=== PATIENT | female | born 1980 | race Caucasian/White ===

== ENCOUNTER 2017-07-24 13:39 | Emergency (ER) | payer BC ==
[2017-07-24] MEDS ORDERED: ALBUTEROL SULFATE/IPRATROPIUM 3 ML NEBU IH ONE ×2 (14:11→14:21)
[2017-07-24] MEDS ORDERED: DEXAMETHASONE SODIUM PHOSPHATE 10 MG/ML VIAL IM ONE (14:12)
[2017-07-24 14:19] LABS: Hematocrit 39.9 % (37.0-47.0); Mean Cell Volume 86.2 fl (78-100); Mean Corpuscular Hemoglobin 30.2 pg (27-31); Mean Corpuscular Hgb Conc 35.1 g/dl (32-36); Mean Platelet Volume 9.3 fl (6.0-9.5); Neutrophil # 5.3 K/mm3 (1.3-6.0); Neutrophil % 59.3 % (42-75.0); Platelet Count 271 K/mm3 (150-450); Red Blood Count 4.63 M/mm3 (4.2-5.4); Red Cell Distribution Width 12.6 % (11.5-14.0)
[2017-07-24] MEDS ORDERED: DEXAMETHASONE SODIUM PHOSPHATE 10 MG/ML VIAL ONE (14:20)
--- NOTE | 2017-07-24 14:25 | ERNOTE ---
Time Seen by Provider: 07/24/17 14:04 Stated Complaint: URI/CHEST PRESSURE/NUMBNESS IN HANDS AND FEET Presenting Symptoms:: cough Source: patient Exam Limitations: no limitations Immunizations: IMMUNIZATION HX Immunizations Up to Date Yes History of Influenza Vaccine Yes Hx Pneumococcal Vaccination No Allergies/Adverse Reactions: Allergies oxycodone HCl [From Percocet] Adverse Reaction (Verified 03/25/15 08:56) Home Medications: HOME MEDICATIONS Benzonatate [Tessalon Perle] 200 mg PO Q6H #40 capsule 07/24/17 [Last Taken Unknown] Prednisone 50 mg PO ONCE #3 tablet 07/24/17 [Last Taken Unknown] - History of Present Ilness Narrative: Patient is a 36-year-old female who presents to the emergency room week history of upper respiratory tract infection notably nasal congestion, nasal discharge, postnasal drip. Also over the past week she has been complaining of coughing and posttussive chest pain. She reports a cough and has been constant. She smokes every once in a while. She denies any pleuritic symptoms. She occasionally has phlegm no hemoptysis noted. Denies any fever, chills, night sweats. Timing: intermittent Associated Symptoms: Reports: chest pain/soreness, cough, shortness of breath, nasal congestion, nasal drainage. Denies: wheezing, facial pain, lightheadedness, earache, headache, sore throat, muscle aches, fever/chills Review of Systems - Review of Systems Constitutional: Present: malaise. Absent: recent illness, fever, chills, diaphoresis, weakness, weight loss, fussy, decreased activity level EYE: Present: see HPI ENT: Present: See HPI Respiratory: Present: cough. Absent: shortness of breath, orthopnea, wheezing, stridor Cardiology: Present: chest pain. Absent: palpitations, syncope, edema, claudication Gastrointestinal/Abdominal: Present: See HPI Genitourinary: Present: See HPI Musculoskeletal: Present: See HPI Skin: Present: See HPI Neurological: Present: See HPI Endocrine: Present: See HPI - Patient's Past Medical History Patient History - Medical: Other Patient History - Cardiac/Respiratory: No pertinent hx Patient History - Cancer: No Hx of Cancer Patient History - Surgical Procedures: Hysterectomy, Other Patient History - Other: None LMP (females 10-50): other - Social History Living Situations: other Abuse History: No History of abuse Psych History: No pertinent hx Smoking Status: Current every day smoker Have you smoked in the past 12 months: Yes Do you dip or chew tobacco: No Alcohol Use: occasionally Drug Use: marijuana - Immunizations Immunizations Up to Date: Yes Hx Pneumococcal Vaccination: No History of Influenza Vaccine: Yes Physical Exam - Physical Exam General Appearance: Present: wd/wn, alert, no apparent distress Head Exam: Present: normal inspection, no evidence of injury Eye Exam: Normal inspection: bilateral, PERRL: bilateral, EOMI: bilateral Ears, Nose, Throat: Present: normal ENT inspection, normal except - Neck: Present: normal inspection, nontender, supple Respiratory: Present: no respiratory distress, normal breath sounds, no accessory muscle use - sternal tenderness to palpation., lungs clear, chest tenderness. Absent: accessory muscle use, decreased breath sounds, expiration ( prolonged), crackles, rales, rhonchi, stridor, wheezing, pleural rub Cardiovascular/Chest: Present: regular rate, rhythm, no murmur, normal peripheral pulses Gastrointestinal/Abdominal: Present: normal bowel sounds, nontender, nondistended Back Exam: Present: normal inspection Extremity Exam: Present: normal inspection, normal range of motion Neurological Exam: Present: alert, oriented, normal mood/affect ED Progress - Results and Orders Patient's Lab Results:: I have reviewed the patient's lab results. - Vital Signs Patient's Vital Signs:: I have reviewed the patient's vital signs. Vital Signs: Vital Signs 07/24/17 13:55 Temperature 36.6 C Pulse Rate 68 Respiratory 18 Rate Blood Pressure 139/75 O2 Sat by Pulse 100 Oximetry - EKG EKG: other - she appears to have a sinus bradycardia - Progress/Reassessment Chief Complaint: Upper Respiratory Symptoms Progress:: Unchanged Progress Note-Subjective: 07/24/17 15:39 Patient seen and evaluated at the emergency room. Blood work done was unremarkable. There is no white count. Chest x-ray done was consistent with no acute cardiopulmonary process. There is no infiltrates or consolidation. - Transfer of Care Expected Disposition: Discharge Departure Clinical Impression: Acute bronchitis Qualifiers: Bronchitis organism: unspecified organism Qualified Code(s): J20.9 - Acute bronchitis, unspecified - Departure Disposition: Home self-care Condition: Stable Instructions: Acute Bronchitis, [id number] Print Language: Israeli Additional Instructions: Patient instructed to follow up with his primary care physician in 3-5 days. He is cough persists she may require antibiotics. This time no antibiotics is indicated. The seat and treat her cough with Tessalon Perles. Also give her 2 to 3 day course of steroids for her costochondritis. Prescriptions: Benzonatate [Tessalon Perle] 200 mg PO Q6H #40 capsule Prednisone 50 mg PO ONCE #3 tablet
[2017-07-24 15:10] VITALS: BP 118/70
== END 2017-07-24 16:01 | disposition home or self-care (01) ==
LOC: ER 13:39
DX: J20.9 Acute bronchitis, unspecified; F17.200 Nicotine dependence, unspecified, uncomplicated